=== PATIENT | female | born 1940 | race Caucasian/White ===

== ENCOUNTER 2021-10-18 02:45 | Emergency (ER) | payer MEDICARE, OTHER ==
[2021-10-18 03:43] LABS: Absolute Neutrophil Ct (ANC) 6.94 x10^3/uL (1.4-6.9); Basophil (Absolute #) 0.03 x10^3/uL (0-0.4); Eosinophil % 1.2 % (0.00-5.0); Eosinophil (Absolute #) 0.11 x10^3/uL (0-0.5); Hematocrit 31.9 % (35-47); Hemoglobin 10.1 g/dL (12.0-16.0); Lymphocyte (Absolute #) 1.66 x10^3/uL (1.0-4.6); Lymphocytes % 17.8 % (24.0-44.0); Mean Cell Volume 87.6 fL (78-100); Mean Corpuscular Hemoglobin 27.7 pg (26-32); Mean Corpuscular Hgb Concent. 31.7 g/dL (32-36); Mean Platelet Volume 9.7 fL (7.5-11.0); Monocyte (Absolute #) 0.57 x10^3/uL (0.0-1.3); Monocytes % 6.1 % (0.0-12.0); Neutrophil % 74.2 % (36.0-66.0); Platelet Count 218 x10^3/uL (150-450); Red Blood Count 3.64 x10^6/uL (4.1-5.4); Red Cell Distribution Width 15.4 % (11.5-14.0); White Blood Count 9.4 x10^3/uL (4.0-10.5)
--- NOTE | 2021-10-18 03:52 | ERPHSYRPT ---
- History of Present Illness Historian: patient Exam Limitations: no limitations Patient Subjective Stated Complaint: pt states she has had diarrhea with dark and light blood and blood clots since yesterday morning. states she had sciatic nerve problems had a steroid shot and a dosepack, and began taking tylenol for 4 days now. states she has had 5 bowel movements with blood since yesterday. Triage Nursing Assessment: pt alert and oriented, states she has no pain at this time. pt was brought back to room in wheelchair. Physician History: 81 yo wf w bloody diarrhea x 1 day. Pt denies abdominal pain/N/V/fever. She denies any anticoagulants/aspirin/fever/chest pain/dyspnea. Timing/Duration: day(s) (1 day) Activities at Onset: rest Quality: other (No pain) Abdominal Pain Onset Location: other (No pain) Pain Radiation: other (No pain) Severity of Pain-Max: none Severity of Pain-Current: none Modifying Factors: Improves With: nothing Associated Symptoms: diarrhea, No back, No chest pain, No diaphoresis, No fever /chills, No fatigue, No headache, No heartburn, No loss of appetite, No nausea, No neck pain, No rash, No shortness of breath, No syncope, No vomiting, No weakness Previous symptoms: no prior history Allergies/Adverse Reactions: No Known Drug Allergies Allergy (Unverified 10/18/21 03:10) Hx Influenza Vaccination/Date Given: Yes Hx Pneumococcal Vaccination/Date Given: Yes Immunizations Up to Date: Yes Travel Risk - International Travel Have you traveled outside of the country in past 3 weeks: No - Coronavirus Screening Are you exhibiting any of the following symptoms?: No Close contact with a COVID-19 positive Pt in past 14-21 Days: No - Vaccine Status Have you recieved a Covid-19 vaccination: Yes Line Driver: [employer] - Vaccination Dates Date of 2cond Vaccination (if applicable): unknon - Review of Systems Constitutional: No Symptoms Eyes: No Symptoms Ears, Nose, & Throat: No Symptoms Respiratory: No Symptoms Cardiac: No Symptoms Abdominal/Gastrointestinal: No Symptoms, Diarrhea, Hematochezia Genitourinary Symptoms: No Symptoms Musculoskeletal: No Symptoms Skin: No Symptoms Neurological: No Symptoms Psychological: No Symptoms Endocrine: No Symptoms, Excessive Sweating Immunological/Allergic: No Symptoms - Past Medical History Pertinent Past Medical History: Yes Cardiac History: Hypertension Endocrine Medical History: Hypothyroidism Other Medical History: hypertension, hypothyroid - Past Surgical History Past Surgical History: Yes Other Surgical History: tubal ligation, inguinal hernia in 1996 - Social History Smoking Status: Never smoker Exposure to second hand smoke: No Drug Use: none Significant Family History: no pertinent family hx - Nursing Vital Signs Nursing Vital Signs: Initial Vital Signs Temperature 97.2 F 10/18/21 02:57 Pulse Rate 113 H 10/18/21 02:57 Respiratory Rate 18 10/18/21 02:57 Blood Pressure 164/93 10/18/21 02:57 O2 Sat by Pulse Oximetry 97 10/18/21 02:57 Pain Scale Pain Intensity 0 Hypertensive/Tachy - Physical Exam General Appearance: no apparent distress Eye Exam: PERRL/EOMI, eyes nml inspection Ears, Nose, Throat Exam: normal ENT inspection, TMs normal, pharynx normal, moist mucous membranes Neck Exam: normal inspection, non-tender, supple, full range of motion, No meningismus, No mass, No Brudzinski, No Kernig's, No carotid bruit Respiratory Exam: normal breath sounds, lungs clear, airway intact Cardiovascular Exam: tachycardia (Mild), capillary refill <2 sec, No murmur Gastrointestinal/Abdomen Exam: soft, normal bowel sounds, No tenderness Back Exam: normal inspection, normal range of motion, No CVA tenderness, No vertebral tenderness, No rash Extremity Exam: normal inspection, normal range of motion Neurologic Exam: alert, oriented x 3, cooperative, bus mechanic II-XII nml as tested, normal mood/affect, nml cerebellar function, nml station & gait, sensation nml, No motor deficits, No sensory deficit Skin Exam: normal color, warm, dry Lymphatic Exam: No adenopathy SpO2 Interpretation: normal SpO2: 97 O2 Delivery: Room Air - Course Nursing assessment & vital signs reviewed: Yes - CT Exams Abdomen/Pelvis CT Interpretation: Tele-radiologist Report (Mild acute diverticulitis of mid sigmoid colon) Ordered Tests: Active Orders 24 hr Category Date Time Status ABDOMEN AND PELVIS W/0 CONTRAS [CT] Stat Exams 10/18/21 04:06 Taken CBC W DIFF Stat Lab 10/18/21 03:36 Completed CMP Stat Lab 10/18/21 03:36 Completed PROTIME WITH INR Stat Lab 10/18/21 03:36 Completed PTT Stat Lab 10/18/21 03:36 Completed TROPONIN Q4H Lab 10/18/21 03:36 Completed TROPONIN Q4H Lab 10/18/21 07:15 Ordered TROPONIN Q4H Lab 10/18/21 11:15 Ordered Lab/Rad Data: Laboratory Result Diagrams 10/18/21 03:36 10/18/21 03:36 Laboratory Results 10/18/21 10/18/21 10/18/21 Range/Units 03:36 03:36 03:36 WBC (4.0-10.5) x10^3/uL RBC (4.1-5.4) x10^6/uL Hgb (12.0-16.0) g/dL Hct (35-47) % MCV (78-100) fL MCH (26-32) pg MCHC (32-36) g/dL RDW (11.5-14.0) % Plt Count (150-450) x10^3/uL MPV (7.5-11.0) fL Gran % (36.0-66.0) % Immature Gran % (Auto) (0.00-0.4) % Nucleat RBC Rel Count (0.00-0.1) % Eos # (Auto) (0-0.5) x10^3/uL Immature Gran # (Auto) (0.00-0.03) x10^3u/L Absolute Lymphs (auto) (1.0-4.6) x10^3/uL Absolute Monos (auto) (0.0-1.3) x10^3/uL Absolute Nucleated RBC (0.00-0.01) x10^3u/L Lymphocytes % (24.0-44.0) % Monocytes % (0.0-12.0) % Eosinophils % (0.00-5.0) % Basophils % (0.0-0.4) % Absolute Granulocytes (1.4-6.9) x10^3/uL Basophils # (0-0.4) x10^3/uL PT 10.6 (9.4-12.5) SECONDS INR 1.00 (0.8-3.0) APTT 21.3 L (25.1-36.5) SECONDS Sodium 139 (137-145) mmol/L Potassium 3.8 (3.5-5.1) mmol/L Chloride 107 (98-107) mmol/L Carbon Dioxide 25 (22-30) mmol/L Anion Gap 11.5 (5-15) MEQ/L BUN 23 H (7-17) mg/dL Creatinine 0.49 L (0.52-1.04) mg/dL Estimated GFR > 60.0 ML/MIN Glucose 147 H (74-106) mg/dL Calcium 8.6 (8.4-10.2) mg/dL Total Bilirubin 0.40 (0.2-1.3) mg/dL AST 23 (14-36) U/L ALT 20 (0-35) U/L Alkaline Phosphatase 70 (38-126) U/L Troponin I < 0.012 (0.000-0.034) ng/mL Serum Total Protein 6.6 (6.3-8.2) g/dL Albumin 3.8 (3.5-5.0) g/dL 10/18/21 Range/Units 03:36 WBC 9.4 (4.0-10.5) x10^3/uL RBC 3.64 L (4.1-5.4) x10^6/uL Hgb 10.1 L (12.0-16.0) g/dL Hct 31.9 L (35-47) % MCV 87.6 (78-100) fL MCH 27.7 (26-32) pg MCHC 31.7 L (32-36) g/dL RDW 15.4 H (11.5-14.0) % Plt Count 218 (150-450) x10^3/uL MPV 9.7 (7.5-11.0) fL Gran % 74.2 H (36.0-66.0) % Immature Gran % (Auto) 0.4 (0.00-0.4) % Nucleat RBC Rel Count 0.0 (0.00-0.1) % Eos # (Auto) 0.11 (0-0.5) x10^3/uL Immature Gran # (Auto) 0.04 H (0.00-0.03) x10^3u/L Absolute Lymphs (auto) 1.66 (1.0-4.6) x10^3/uL Absolute Monos (auto) 0.57 (0.0-1.3) x10^3/uL Absolute Nucleated RBC 0.00 (0.00-0.01) x10^3u/L Lymphocytes % 17.8 L (24.0-44.0) % Monocytes % 6.1 (0.0-12.0) % Eosinophils % 1.2 (0.00-5.0) % Basophils % 0.3 (0.0-0.4) % Absolute Granulocytes 6.94 H (1.4-6.9) x10^3/uL Basophils # 0.03 (0-0.4) x10^3/uL PT (9.4-12.5) SECONDS INR (0.8-3.0) APTT (25.1-36.5) SECONDS Sodium (137-145) mmol/L Potassium (3.5-5.1) mmol/L Chloride (98-107) mmol/L Carbon Dioxide (22-30) mmol/L Anion Gap (5-15) MEQ/L BUN (7-17) mg/dL Creatinine (0.52-1.04) mg/dL Estimated GFR ML/MIN Glucose (74-106) mg/dL Calcium (8.4-10.2) mg/dL Total Bilirubin (0.2-1.3) mg/dL AST (14-36) U/L ALT (0-35) U/L Alkaline Phosphatase (38-126) U/L Troponin I (0.000-0.034) ng/mL Serum Total Protein (6.3-8.2) g/dL Albumin (3.5-5.0) g/dL - Progress Progress Note: 10/18/21 05:03 Pt did not produce a stool specimen in the ER 500mg po Flagyl/Bactrim DS x1 Counseled pt/family regarding: lab results, diagnosis, need for follow-up, rad results - Departure Departure Disposition: Home Clinical Impression: Diverticulitis Condition: Stable Critical Care Time: No Referrals: MALLORY GREEN MD [Primary Care Provider] - Follow up/PCP as directed Instructions: Diverticulitis (DC) Additional Instructions: Follow up with Dr. Green in 1-2 days Return to ER for increasing pain, temperature greater than 100.5, or continued blood in stool Continue with Bactrim and Flagyl Prescriptions: Smz/Tmp Ds Tablet [Bactrim Ds Tablet] 1 tab PO Q12H 7 Days #14 tablet Metronidazole 500 mg [Flagyl 500 MG] 500 mg PO BID #14 tablet
[2021-10-18 04:03] LABS: ALBUMIN 3.8 g/dL (3.5-5.0); ALKALINE PHOSPHATASE 70 U/L (38-126); ANION GAP 11.5 MEQ/L (5-15); BLOOD UREA NITROGEN 23 mg/dL (7-17); CHLORIDE 107 mmol/L (98-107); Calcium 8.6 mg/dL (8.4-10.2); Carbon Dioxide 25 mmol/L (22-30); Creatinine 1 0.49 mg/dL (0.52-1.04); EST GLOMERULAR FILTRATION RATE > 60.0 ML/MIN; Glucose 147 mg/dL (74-106); Potassium 3.8 mmol/L (3.5-5.1); SGOT/AST 23 U/L (14-36); SGPT/ALT 20 U/L (0-35); SODIUM 139 mmol/L (137-145); Total Protein 6.6 g/dL (6.3-8.2)
[2021-10-18 04:05] LABS: PROTIME 10.6 SECONDS (9.4-12.5); PTT 21.3 SECONDS (25.1-36.5)
[2021-10-18] MEDS ORDERED: BACTRIM DS TABLET PO STA (05:01)
[2021-10-18] MEDS ORDERED: Flagyl 500 MG PO ONE (05:02)
[2021-10-18 05:05] VITALS: BP 124/77; PULSE 99
[2021-10-18] MEDS ORDERED: Flagyl 500 MG ONE (05:07)
[2021-10-18] MEDS ORDERED: BACTRIM DS TABLET PO ONE (05:07)
[2021-10-18 05:09] VITALS: O2SAT 97
--- NOTE | 2021-10-18 09:06 | XRAY ---
Indication: Hematochezia. Multiple contiguous images obtained through the abdomen and pelvis without contrast. Comparison: None Lung bases demonstrates mild bibasilar subsegmental atelectasis/scarring and tiny right base calcified granuloma. Heart borderline enlarged. Small hiatal hernia. Noncontrasted stomach and bowel loops remain nonobstructed with normal appendix. Incidental 3.3 cm descending duodenal diverticulum. Diffuse scattered colonic diverticulosis with minimal midsigmoid diverticulitis. No free fluid/air. Tiny nonobstructing left renal calculus and splenic calcified granuloma. 1 cm right mid renal cyst. Remaining liver, gallbladder, pancreas, spleen, adrenal glands, kidneys, ureters, bladder, and uterus are unremarkable for noncontrast exam. Mild/moderate scattered aortoiliac calcifications without AAA. Osseous structures intact with osteopenia, mild/moderate multilevel thoracolumbar degenerative spondylosis, and 4 mm L4 spondylolisthesis. Impression: 1. Scattered colonic diverticulosis. Minimal sigmoid diverticulitis. 2. Small hiatal hernia, borderline cardiomegaly, duodenal diverticulum, nonobstructing left renal micro-calculus, small right renal cyst, arteriosclerotic disease, and chronic bony findings. Comment: Preliminary interpretation made by [facility]. No critical discrepancy.
== END 2021-10-18 05:17 | disposition home or self-care (01) ==
LOC: ED 02:45
DX: K57.32 Diverticulitis of large intestine without perforation or abscess without bleeding (principal); R19.7 Diarrhea, unspecified; K92.1 Melena; I10 Essential (primary) hypertension
CPT/HCPCS: 36415; 74176; 80053; 84484; 85025; 85610; 85730; 99283; A9270-GY